=== PATIENT | female | born 1985 | race Caucasian/White ===

== ENCOUNTER 2018-04-19 15:55 | Emergency (ER) | payer MEDICARE, SELFPAY ==
[2018-04-19 16:02] VITALS: BP 122/76; PULSE 103; RESP 16; TEMP 35.8; O2SAT 98; BMI 29.2
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
[2018-04-19 17:18] VITALS: PULSE 92; RESP 16; O2SAT 98
== END 2018-04-19 17:19 | disposition home or self-care (01) ==
PROVIDERS: Emergency Provider Internal Medicine
DX: S16.1XXA Strain of muscle, fascia and tendon at neck level, initial encounter (principal); S46.812A Strain of other muscles, fascia and tendons at shoulder and upper arm level, left arm, initial encounter; S80.02XA Contusion of left knee, initial encounter; R51 Headache; V49.40XA Driver injured in collision with unspecified motor vehicles in traffic accident, initial encounter
CPT/HCPCS: 99282

== ENCOUNTER → 2019-07-18 16:22 | Outpatient (CLI) | payer MEDICARE, OTHER, MEDICAID, SELFPAY ==
[2019-07-18 16:24] LABS: Influenza A - CEPHEID Flu A NEGATIVE (NEGATIVE); Influenza B - CEPHEID Flu B POSITIVE (NEGATIVE)
== END ==
PROVIDERS: Visit Provider Physician Assistant
DX: R68.89 Other general symptoms and signs (principal)
CPT/HCPCS: 87502

== ENCOUNTER → 2020-05-10 16:10 | Outpatient (CLI) | payer MEDICARE, OTHER, MEDICAID, SELFPAY ==
[2020-05-10 16:33] LABS: Add Manual Diff / Slide Review NO; Basophils Absolute Auto 0 /uL (0-100); Basophils Percent Auto 0.5 % (0-2); Eosinophils Absolute Auto 100 /uL (0-450); Eosinophils Percent Auto 1.3 % (2-4); Hemoglobin 13.8 g/dL (12.0-16.0); Lymphocytes Absolute Auto 4100 /uL (1100-4500); Lymphocytes Percent Auto 42.8 % (25-40); Mean Corpuscular HGB Conc 33.7 % (30-36); Mean Corpuscular Hemoglobin 30.1 PG (26-34); Mean Corpuscular Volume 89.4 fL (80-100); Monocytes Absolute Auto 400 /uL (0-900); Monocytes Percent Auto 4.4 % (3-14); Neutrophils Absolute Auto 4900 /uL (1500-7000); Platelet Count 264 X10^3/uL (150-400); Red Blood Cell Count 4.59 X10^6/uL (4.0-5.2); Red Cell Distribution Width 12.8 % (11.6-14.8); White Blood Cell Count 9.6 X10^3/uL (4.5-11.0)
[2020-05-10 17:10] LABS: Alanine Aminotransferase 15 IU/L (<35); Albumin 4.3 g/dL (3.5-5.0); Albumin Globulin Ratio 1.2 (1.0-2.8); Alkaline Phosphatase 51 U/L (38-126); Aspartate Aminotransferase 21 IU/L (14-36); BUN Creatinine Ratio 13.8 (6-22); Bilirubin Total 0.3 mg/dL (0.2-1.3); Blood Urea Nitrogen 11 mg/dL (7-17); Calcium 9.6 mg/dL (8.4-10.2); Carbon Dioxide 27 mmol/L (22-32); Chloride 105 mmol/L (98-107); Estimated Glomerular Filt Rate > 60.0 mL/min (>60); Globulin 3.7 g/dL (1.7-4.1); Glucose 100 mg/dL (70-100); HEMOLYSIS < 15 (0-50); Potassium 4.1 mmol/L (3.4-5.1); Sodium 138 mmol/L (137-145)
[2020-05-13 13:12] LABS: Lamotrigine Lamictal <1.0 ug/mL (2.0-20.0)
== END ==
PROVIDERS: Referring Provider Family Medicine; Visit Provider Family Medicine
DX: F31.74 Bipolar disorder, in full remission, most recent episode manic (principal)
CPT/HCPCS: 36415; 80053; 80175; 85025

== ENCOUNTER → 2020-08-21 13:31 | Outpatient (CLI) | payer MEDICARE, OTHER, MEDICAID, SELFPAY | PROVIDERS: Visit Provider Nurse Practitioner | DX: R35.0 Frequency of micturition (principal); R35.8 Other polyuria | CPT/HCPCS: 87086 ==

== ENCOUNTER → 2020-08-23 10:49 | Outpatient (CLI) | payer MEDICARE, OTHER, MEDICAID, SELFPAY ==
[2020-08-23 11:24] LABS: Add Manual Diff / Slide Review NO; Basophils Absolute Auto 0 /uL (0-100); Basophils Percent Auto 0.5 % (0-2); Eosinophils Absolute Auto 200 /uL (0-450); Eosinophils Percent Auto 2.3 % (2-4); Hematocrit 40.2 % (36-46); Hemoglobin 13.6 g/dL (12.0-16.0); Lymphocytes Absolute Auto 3100 /uL (1100-4500); Mean Corpuscular HGB Conc 33.7 % (30-36); Mean Corpuscular Hemoglobin 29.9 PG (26-34); Mean Corpuscular Volume 88.8 fL (80-100); Monocytes Absolute Auto 300 /uL (0-900); Monocytes Percent Auto 4.4 % (3-14); Neutrophils Absolute Auto 4100 /uL (1500-7000); Neutrophils Percent Auto 52.8 % (50-75); Platelet Count 245 X10^3/uL (150-400); Red Blood Cell Count 4.52 X10^6/uL (4.0-5.2); Red Cell Distribution Width 12.6 % (11.6-14.8); White Blood Cell Count 7.8 X10^3/uL (4.5-11.0)
[2020-08-23 11:47] LABS: Alanine Aminotransferase 13 IU/L (<35); Albumin 4.3 g/dL (3.5-5.0); Albumin Globulin Ratio 1.5 (1.0-2.8); Alkaline Phosphatase 44 U/L (38-126); Aspartate Aminotransferase 18 IU/L (14-36); BUN Creatinine Ratio 17.4 (6-22); Bilirubin Total 0.1 mg/dL (0.2-1.3); Blood Urea Nitrogen 12 mg/dL (7-17); Calcium 9.6 mg/dL (8.4-10.2); Carbon Dioxide 24 mmol/L (22-32); Chloride 105 mmol/L (98-107); Estimated Glomerular Filt Rate > 60.0 mL/min (>60); Globulin 2.8 g/dL (1.7-4.1); Glucose 111 mg/dL (70-100); HEMOLYSIS < 15 (0-50); Lipase 67 U/L (23-300); Potassium 4.4 mmol/L (3.4-5.1); Sodium 135 mmol/L (137-145); Total Protein 7.1 g/dL (6.3-8.2)
== END ==
PROVIDERS: Referring Provider Nurse Practitioner; Visit Provider Nurse Practitioner
DX: R10.9 Unspecified abdominal pain (principal)
CPT/HCPCS: 36415; 80053; 83690; 85025

== ENCOUNTER → 2021-09-29 09:16 | Outpatient (CLI) | payer MEDICARE, MEDICAID, SELFPAY | PROVIDERS: Visit Provider Physician Assistant | DX: R30.0 Dysuria (principal) | CPT/HCPCS: 87086 ==

== ENCOUNTER → 2023-11-13 14:24 | Outpatient (CLI) | payer MEDICARE, SELFPAY ==
[2023-11-13 16:20] LABS: Influenza A - CEPHEID Flu A NEGATIVE (NEGATIVE); Influenza B - CEPHEID Flu B NEGATIVE (NEGATIVE); Respiratory Syncytial Virus Negative (Negative)
[2023-11-13 16:24] LABS: COVID-19 CEPHEID 4-PLEX PCR POSITIVE (Negative)
== END ==
PROVIDERS: Visit Provider Student in an Organized Health Care Education/Training Program
DX: R09.81 Nasal congestion (principal)
CPT/HCPCS: 0241U; 87070; 87147